=== PATIENT | female | born 1990 | race American Indian/Alaskan Native ===

== ENCOUNTER 2017-11-13 12:07 | Outpatient (CLI) | payer BC, MEDICAID ==
[2017-11-13 12:25] VITALS: BP 107/52
--- NOTE | 2017-11-13 14:48 | Ultrasound Report ---
OB LIMITED INDICATION: STEPHEN, well being. COMPARISON: None similar at this institution. TECHNIQUE: Transabdominal grayscale ultrasound with Doppler interrogation. Gestation: Sosa Position: Cephalic Amniotic Fluid: WNL (7-24 cm) STEPHEN = 7.6 cm Heart Rate: 147 BPM CONCLUSION: Findings, as above.
== END 2017-11-13 14:35 | disposition home or self-care (01) ==
LOC: TRG 12:07
PROVIDERS: ATTEND Obstetrics & Gynecology
DX: O47.1 False labor at or after 37 completed weeks of gestation (principal); Z3A.39 39 weeks gestation of pregnancy
CPT/HCPCS: 59025; 76815

== ENCOUNTER 2017-11-14 23:59 | Outpatient (CLI) | payer BC, MEDICAID ==
[2017-11-15 00:09] VITALS: BP 111/74
== END 2017-11-15 00:49 | disposition home or self-care (01) ==
LOC: TRG 23:59
PROVIDERS: ATTEND Obstetrics & Gynecology
DX: O47.1 False labor at or after 37 completed weeks of gestation (principal); Z3A.39 39 weeks gestation of pregnancy
CPT/HCPCS: 59025